=== PATIENT | female | born 1990 | race Caucasian/White ===

== ENCOUNTER 2017-01-17 22:14 | Emergency (ER) | payer SELFPAY ==
[2016-09-15 09:06] VITALS: BMI 39.9
[~2017-01-17 22:14] MED LIST: HYDROCODONE-APA1 TAB PO; IBUPROFEN600 MG PO; MOTRIN600 MG PO; PRENATAL COMPLE1 TAB PO; ZPAK PO
== END 2017-01-18 00:35 | disposition home or self-care (01) ==
LOC: D.ER 22:14
DX: S02.5XXA Fracture of tooth (traumatic), initial encounter for closed fracture (principal); X58.XXXA Exposure to other specified factors, initial encounter; Y93.9 Activity, unspecified; Y92.9 Unspecified place or not applicable; K02.9 Dental caries, unspecified; K08.89 Other specified disorders of teeth and supporting structures; F17.200 Nicotine dependence, unspecified, uncomplicated

== ENCOUNTER 2017-10-11 21:23 | Emergency (ER) | payer MEDICAID ==
[2016-09-15 09:06] VITALS: BMI 39.9
== END 2017-10-11 22:41 | disposition home or self-care (01) ==
LOC: D.ER 21:23
DX: J02.9 Acute pharyngitis, unspecified (principal); J06.9 Acute upper respiratory infection, unspecified; F17.200 Nicotine dependence, unspecified, uncomplicated

== ENCOUNTER 2017-11-19 23:47 | Emergency (ER) | payer MEDICAID ==
[2016-09-15 09:06] VITALS: BMI 39.9
== END 2017-11-20 01:06 | disposition home or self-care (01) ==
LOC: D.ER 23:47
DX: J11.1 Influenza due to unidentified influenza virus with other respiratory manifestations (principal)

== ENCOUNTER 2017-12-28 | Emergency (ER) | payer MEDICAID ==
[2016-09-15 09:06] VITALS: BMI 39.9
== END 2017-12-28 02:05 | disposition home or self-care (01) ==
LOC: D.ER
DX: J02.0 Streptococcal pharyngitis (principal)

== ENCOUNTER 2018-08-29 15:24 | Emergency (ER) | payer MEDICAID ==
[~2018-08-29] VITALS: Ht 165.1 cm; Wt 99.8 kg
[2018-08-29 15:52] VITALS: Ht 165.1 cm; Wt 99.8 kg
[2018-08-29] MEDS ORDERED: PENICILLIN V P500 MG PO (15:53)
[2018-08-29] MEDS ORDERED: VOLTAREN75 MG PO (18:20)
[2018-08-29] MEDS ORDERED: CLEOCIN HCL300 MG PO (18:20)
[2018-08-29 18:39] VITALS: BP 113/69
== END 2018-08-29 18:39 | disposition home or self-care (01) ==
LOC: D.ER 15:24
DX: K04.7 Periapical abscess without sinus (principal); K08.89 Other specified disorders of teeth and supporting structures; F17.200 Nicotine dependence, unspecified, uncomplicated

== ENCOUNTER 2018-09-26 21:29 | Emergency (ER) | payer MEDICAID | END 2018-09-26 22:52 | disposition home or self-care (01) | LOC: D.ER 21:29 | DX: K02.9 Dental caries, unspecified (principal); R05 Cough; K08.89 Other specified disorders of teeth and supporting structures; J06.9 Acute upper respiratory infection, unspecified; M79.18 Myalgia, other site; F17.200 Nicotine dependence, unspecified, uncomplicated ==

== ENCOUNTER 2018-09-28 12:36 | Emergency (ER) | payer MEDICAID ==
[2018-09-26 21:35] VITALS: BMI 36.6
[~2018-09-28 12:36] MED LIST changes: +CLEOCIN HCL300 MG PO; +PENICILLIN V P500 MG PO; +TORADOL10 MG PO; +VOLTAREN75 MG PO
== END 2018-09-28 14:27 | disposition left against medical advice (07) ==
LOC: D.ER 12:36
DX: K02.9 Dental caries, unspecified (principal); R05 Cough; K08.89 Other specified disorders of teeth and supporting structures; J06.9 Acute upper respiratory infection, unspecified; F17.200 Nicotine dependence, unspecified, uncomplicated

== ENCOUNTER 2019-01-17 20:13 | Emergency (ER) | payer MEDICAID ==
[~2019-01-17] VITALS: Ht 165.1 cm; Wt 102.3 kg
[2019-01-17 20:33] VITALS: BP 134/76; Ht 165.1 cm; Wt 102.3 kg
== END 2019-01-17 21:49 | disposition home or self-care (01) ==
LOC: D.ER 20:13
DX: R05 Cough (principal); J02.9 Acute pharyngitis, unspecified

== ENCOUNTER 2019-01-28 14:50 | Emergency (ER) | payer MEDICAID ==
[2019-01-28] MEDS ORDERED: VOLTAREN75 MG PO (16:14)
[2019-01-28] MEDS ORDERED: AMOXICILLIN500 M1 PO (16:14)
== END 2019-01-28 16:35 | disposition home or self-care (01) ==
LOC: D.ER 14:50
DX: K04.7 Periapical abscess without sinus (principal); K08.89 Other specified disorders of teeth and supporting structures

== ENCOUNTER 2019-02-07 22:32 | Emergency (ER) | payer MEDICAID ==
[~2019-02-07] VITALS: Ht 165.1 cm; Wt 100.0 kg
[~2019-02-07 22:32] MED LIST changes: +AMOXICILLIN500 M1 PO
[2019-02-07 22:44] VITALS: BP 147/84; Ht 165.1 cm; Wt 100.0 kg
== END 2019-02-08 01:13 | disposition home or self-care (01) ==
LOC: D.ER 22:32
DX: H92.09 Otalgia, unspecified ear (principal)